=== PATIENT | male | born 1955 | race Caucasian/White ===

== ENCOUNTER 2019-03-16 12:14 | Inpatient (IN) | payer SELFPAY ==
[2019-03-16 13:12] LABS: ADD MAN DIFF? NO
[2019-03-16] MEDS: PANTOPRAZOLE 40 MG INJ IV ×2 (13:13→19:18)
[2019-03-16] MEDS: SOD CHLORIDE 0.9% 1,000 ML IV ×2 (13:13→17:23)
[2019-03-16 13:20] LABS: WHITE BLOOD COUNT 12.2 10^3/ul (4.8-10.8)
[2019-03-16 13:20] LABS: BASOPHIL # 0.1 10^3/ul (0.0-0.1); BASOPHILS % 0.5 % (0.0-2.0); EOSINOPHILS % 0.2 % (0.0-7.0); HEMATOCRIT 24.3 % (42.0-52.0); HEMOGLOBIN 7.9 g/dl (14.0-18.0); LYMPHOCYTES # 2.3 10^3/ul (0.8-2.9); MEAN CORPUSCULAR HEMOGLOBIN 32.8 pg (29.0-33.0); MEAN CORPUSCULAR HGB CONC 32.5 g/dl (32.0-37.0); MEAN CORPUSCULAR VOLUME 100.8 fl (82.0-101.0); MEAN PLATELET VOLUME 10.7 fl (7.4-10.4); MONOCYTE # 0.7 10^3/ul (0.3-0.9); MONOCYTES % 5.8 % (0.0-11.0); NEUTROPHILS % 73.8 % (39.0-77.0); PLATELET COUNT 207 10^3/UL (140-415); RED BLOOD COUNT 2.41 10^6/ul (4.70-6.10); RED CELL DISTRIBUTION WIDTH 16.8 % (11.5-14.5)
[2019-03-16 13:38] LABS: ALANINE AMINOTRANSFERASE 43 IU/L (13-69); ALBUMIN 2.6 g/dl (3.3-4.9); ALBUMIN/GLOBULIN RATIO 0.65; ALKALINE PHOSPHATASE 126 IU/L (42-121); ANION GAP 8 (5-13); ASPARTATE AMINO TRANSFERASE 76 IU/L (15-46); BLOOD UREA NITROGEN 64 mg/dl (7-20); CALCIUM 8.7 mg/dl (8.4-10.2); CARBON DIOXIDE 24 mmol/L (21-31); CHLORIDE 115 mmol/L (97-110); CREATININE 1.54 mg/dl (0.61-1.24); Estimated GFR 46 mL/min (>60); GLUCOSE 133 mg/dl (70-220); POTASSIUM 4.3 mmol/L (3.5-5.1); SODIUM 147 mmol/L (135-144); TOTAL PROTEIN 6.6 g/dl (6.1-8.1)
[2019-03-16 13:40] LABS: INR 1.33; PROTIME 16.6 Sec (11.9-14.9); PT RATIO 1.3
[2019-03-16 13:41] LABS: PARTIAL THROMBOPLASTIN TIME 36.9 Sec (23.0-35.0)
[2019-03-16] MEDS: PANTOPRAZOLE IV 80 MG in SOD CHLORIDE 0.9% 100 ML IVPB (13:45)
[2019-03-16 13:49] LABS: TROPONIN-I < 0.012 ng/ml (0.000-0.120)
[2019-03-16] MEDS: LORAZEPAM 2 MG INJ IV (17:23)
[2019-03-16] MEDS ORDERED: ACETAMINOPHEN 325 MG TAB PO (17:30)
[2019-03-16] MEDS ORDERED: NACL 0.9% 3 ML SYG IV (18:00)
[2019-03-16 19:46] LABS: ANION GAP 9 (5-13); BLOOD UREA NITROGEN 66 mg/dl (7-20); CALCIUM 8.6 mg/dl (8.4-10.2); CARBON DIOXIDE 21 mmol/L (21-31); CHLORIDE 118 mmol/L (97-110); CREATININE 1.35 mg/dl (0.61-1.24); Estimated GFR 54 mL/min (>60); GLUCOSE 123 mg/dl (70-220); POTASSIUM 4.3 mmol/L (3.5-5.1); SODIUM 148 mmol/L (135-144)
[2019-03-16 20:31] LABS: ABNORMAL IP MESSAGE 1; HEMATOCRIT 21.4 % (42.0-52.0); MEAN CORPUSCULAR HEMOGLOBIN 32.7 pg (29.0-33.0); MEAN CORPUSCULAR HGB CONC 31.8 g/dl (32.0-37.0); MEAN CORPUSCULAR VOLUME 102.9 fl (82.0-101.0); PLATELET COUNT 173 10^3/UL (140-415); POSITIVE DIFF @See below; RED BLOOD COUNT 2.08 10^6/ul (4.70-6.10); RED CELL DISTRIBUTION WIDTH 17.1 % (11.5-14.5)
[2019-03-16 20:31] LABS: WHITE BLOOD COUNT 11.5 10^3/ul (4.8-10.8)
[2019-03-16 20:40] LABS: HEMOGLOBIN 6.8 g/dl (14.0-18.0)
[2019-03-16 20:41] LABS: ADD MAN DIFF? YES
[2019-03-16 20:49] LABS: ANION GAP 5 (5-13); BLOOD UREA NITROGEN 63 mg/dl (7-20); CALCIUM 8.8 mg/dl (8.4-10.2); CARBON DIOXIDE 22 mmol/L (21-31); CHLORIDE 120 mmol/L (97-110); CREATININE 1.43 mg/dl (0.61-1.24); Estimated GFR 50 mL/min (>60); GLUCOSE 127 mg/dl (70-220); SODIUM 147 mmol/L (135-144)
[2019-03-16] MEDS ORDERED: ACETAMINOPHEN 1000MG/100ML IV 100 ML IVPB (22:00)
[2019-03-16] MEDS: ONDANSETRON 4 MG INJ IV (22:04)
[2019-03-16] MEDS: morphine 2 MG INJ IV (22:07)
[2019-03-16 23:16] LABS: ANISOCYTOSIS 1+ (0-0); BAND NEUTROPHILS #M 0.2 10^3/ul (0.0-0.6); BAND NEUTROPHILS % (M) 2 % (0-4); BASOPHIL #M 0.4 10^3/ul (0.0-0.0); BASOPHILS % (M) 4 % (0-2); EOSINOPHILS % (M) 3 % (0-7); HYPOCHROMASIA 1+ (0-0); LYMPHOCYTES #M 0.5 10^3/ul (0.8-2.9); LYMPHOCYTES % (M) 5 % (15-51); MONOCYTE #M 0.6 10^3/ul (0.3-0.9); MONOCYTES % (M) 6 % (0-11); OVALOCYTES 1+ (0-0); PLATELET ESTIMATE NORMAL; POIKILOCYTOSIS 1+ (0-0); REACTIVE LYMPHOCYTES #M 0.1 10^3/ul (0.0-0.0); REACTIVE LYMPHOCYTES% (M) 1 % (0-0); SEG NEUT #M 9.1 10^3/ul (1.6-7.5); SEGMENTED NEUTROPHILS (M) % 79 % (39-77); SMUDGE%M 44 % (0-0)
[2019-03-17] MEDS: OCTREOTIDE 50 MCG in SOD CHLORIDE 0.9% 50 ML IVPB (00:13)
[2019-03-17] MEDS: OCTREOTIDE 1 MG in DEXTROSE 5% 95 ML IV ×2 (00:14→18:30)
[2019-03-17] MEDS: PANTOPRAZOLE IV 80 MG in SOD CHLORIDE 0.9% 100 ML IV ×2 (00:14→10:04)
[2019-03-17 06:32] LABS: IMMEDIATE SPIN CROSSMATCH 1 5
[2019-03-17 12:09] LABS: ADD MAN DIFF? NO
[2019-03-17 12:12] LABS: WHITE BLOOD COUNT 9.6 10^3/ul (4.8-10.8)
[2019-03-17 12:12] LABS: BASOPHIL # 0.1 10^3/ul (0.0-0.1); BASOPHILS % 0.5 % (0.0-2.0); EOSINOPHILS % 0.3 % (0.0-7.0); HEMOGLOBIN 7.8 g/dl (14.0-18.0); LYMPHOCYTES # 1.7 10^3/ul (0.8-2.9); MEAN CORPUSCULAR HEMOGLOBIN 31.5 pg (29.0-33.0); MEAN CORPUSCULAR HGB CONC 32.5 g/dl (32.0-37.0); MEAN CORPUSCULAR VOLUME 96.8 fl (82.0-101.0); MEAN PLATELET VOLUME 10.2 fl (7.4-10.4); MONOCYTE # 0.7 10^3/ul (0.3-0.9); MONOCYTES % 7.7 % (0.0-11.0); NEUTROPHILS % 73.1 % (39.0-77.0); PLATELET COUNT 150 10^3/UL (140-415); RED BLOOD COUNT 2.48 10^6/ul (4.70-6.10); RED CELL DISTRIBUTION WIDTH 19.9 % (11.5-14.5)
[2019-03-17 12:32] LABS: INR 1.32; PROTIME 16.5 Sec (11.9-14.9); PT RATIO 1.3
[2019-03-17 12:33] LABS: ALANINE AMINOTRANSFERASE 45 IU/L (13-69); ALBUMIN 2.3 g/dl (3.3-4.9); ALBUMIN/GLOBULIN RATIO 0.65; ALKALINE PHOSPHATASE 95 IU/L (42-121); ANION GAP 5 (5-13); ASPARTATE AMINO TRANSFERASE 69 IU/L (15-46); BILIRUBIN,INDIRECT 0.8 mg/dl (0-1.1); BILIRUBIN,TOTAL 0.8 mg/dl (0.2-1.3); BLOOD UREA NITROGEN 58 mg/dl (7-20); CALCIUM 8.4 mg/dl (8.4-10.2); CARBON DIOXIDE 23 mmol/L (21-31); CHLORIDE 123 mmol/L (97-110); CREATININE 1.38 mg/dl (0.61-1.24); Estimated GFR 52 mL/min (>60); GLUCOSE 137 mg/dl (70-220); PARTIAL THROMBOPLASTIN TIME 37.7 Sec (23.0-35.0); POTASSIUM 4.3 mmol/L (3.5-5.1); SODIUM 151 mmol/L (135-144); TOTAL PROTEIN 5.8 g/dl (6.1-8.1)
[2019-03-17 12:38] LABS: ETHANOL < 10.0 mg/dl (0-0)
[2019-03-17 14:21] LABS: AADO2 Arterial 13.5 mmHg (7.0-24.0); Allen Test ACCEPTAB; Arterial Base Excess -1.6 mmol/L (-3.0-3); Arterial Blood Gas Oxygen Sat 97.3 mmHG (95.0-98.0); Arterial COHb 0.3 % (0.0-3.0); Arterial Fraction of Oxyhgb 96.4 % (93.0-99.0); Arterial HCO3 20.7 mmol/L (22.0-26.0); Arterial MetHb 0.6 % (0.0-1.5); Arterial pCO2 26.4 mmhg (35-45); MODE ROOM AIR; Site Left Radial
[2019-03-17 15:16] LABS: LIPASE 276 U/L (23-300)
[2019-03-17 15:17] LABS: AMMONIA 206 umol/l (9-30)
[2019-03-17 15:41] LABS: AMPHETAMINE/METHAMPHETAMINE Negative (NEGATIVE); BARBITURATES Negative (NEGATIVE); BENZODIAZEPINES Negative (NEGATIVE); CANNABINOIDS Negative (NEGATIVE); COCAINE Negative (NEGATIVE); OPIATES Positive (NEGATIVE)
[2019-03-17 16:16] LABS: THYROID STIMULATING HORMONE 0.189 MIU/L (0.465-4.680)
[2019-03-17] MEDS ORDERED: ONDANSETRON 4 MG INJ IV (17:30)
[2019-03-17 17:32] LABS: ADD UMIC YES; UR ASCORBIC ACID NEGATIVE (NEGATIVE); UR BILIRUBIN (Dip) NEGATIVE (NEGATIVE); UR BLOOD (Dip) 1+ mg/dL (NEGATIVE); UR CLARITY CLEAR (CLEAR); UR COLOR YELLOW (YELLOW); UR GLUCOSE (Dip) NEGATIVE (NEGATIVE); UR KETONES (Dip) NEGATIVE (NEGATIVE); UR LEUKOCYTE ESTERASE (Dip) NEGATIVE Leu/ul (NEGATIVE); UR NITRITE (Dip) NEGATIVE (NEGATIVE); UR RBC 23 /HPF (0-5); UR SPECIFIC GRAVITY (Dip) 1.019 (1.003-1.030); UR TOTAL PROTEIN (Dip) NEGATIVE (NEGATIVE); UR UROBILINOGEN (Dip) 2+ mg/dL (NEGATIVE); UR WBC 3 /HPF (0-5)
[2019-03-17 17:35] LABS: CREATININE,URINE RANDOM 89.44 mg/dl (20-370)
[2019-03-17 17:44] LABS: PROTEIN URINE < 5.0 mg/dl (0.0-11.9)
[2019-03-17 18:02] LABS: SODIUM,URINE RANDOM 15 mmol/L (30-90)
[2019-03-17] MEDS: DEXTROSE 5% 1,000 ML IV (18:30)
[2019-03-17] MEDS: LACTULOSE ENEMA 1,000 ML BTL PR (18:31)
[2019-03-17 18:51] LABS: HEPATITIS B SURFACE ANTIGEN NEGATIVE (NEGATIVE)
[2019-03-17 19:08] LABS: HEPATITIS B SURFACE ANTIBODY NEGATIVE (NEGATIVE)
[2019-03-17 19:09] LABS: HEPATITIS B CORE ANTIBODY NEGATIVE (NEGATIVE); HEPATITIS C VIRAL ANTIBODY NEGATIVE (NEGATIVE)
[2019-03-17 19:36] LABS: ANION GAP 4 (5-13); BLOOD UREA NITROGEN 56 mg/dl (7-20); CALCIUM 8.5 mg/dl (8.4-10.2); CARBON DIOXIDE 22 mmol/L (21-31); CHLORIDE 125 mmol/L (97-110); CREATININE 1.34 mg/dl (0.61-1.24); Estimated GFR 54 mL/min (>60); GLUCOSE 136 mg/dl (70-220); POTASSIUM 4.5 mmol/L (3.5-5.1); SODIUM 151 mmol/L (135-144)
[2019-03-17] MEDS: PANTOPRAZOLE IV 80 MG in DEXTROSE 5% 100 ML IV (20:28)
[2019-03-17] MEDS: LACTULOSE 30ML CUP PO (20:29)
[2019-03-17] MEDS: RIFAXIMIN 550 MG TAB PO (20:29)
[2019-03-18] MEDS: LACTULOSE ENEMA 1,000 ML BTL PR ×2 (00:22→06:46)
[2019-03-18 00:32] LABS: AADO2 Arterial 63.2 mmHg (7.0-24.0); Allen Test ACCEPTAB; Arterial Blood Gas Oxygen Sat 96.9 mmHG (95.0-98.0); Arterial COHb 0.3 % (0.0-3.0); Arterial MetHb 0.6 % (0.0-1.5); Arterial pCO2 30.3 mmhg (35-45); MODE NASAL CANNULA; Site Right Radial
[2019-03-18] MEDS: LACTULOSE 30ML CUP PO ×6 (01:00→21:50)
[2019-03-18] MEDS: PANTOPRAZOLE IV 80 MG in DEXTROSE 5% 100 ML IV ×2 (01:00→06:57)
[2019-03-18] MEDS: DEXTROSE 5% 1,000 ML IV ×2 (04:00→13:38)
[2019-03-18 05:35] LABS: ADD MAN DIFF? NO
[2019-03-18 05:37] LABS: WHITE BLOOD COUNT 10.7 10^3/ul (4.8-10.8)
[2019-03-18 05:37] LABS: BASOPHIL # 0.1 10^3/ul (0.0-0.1); BASOPHILS % 0.7 % (0.0-2.0); EOSINOPHILS % 0.2 % (0.0-7.0); HEMATOCRIT 26.1 % (42.0-52.0); HEMOGLOBIN 8.6 g/dl (14.0-18.0); LYMPHOCYTES # 1.9 10^3/ul (0.8-2.9); LYMPHOCYTES % 17.6 % (15.0-51.0); MEAN CORPUSCULAR HEMOGLOBIN 31.6 pg (29.0-33.0); MEAN PLATELET VOLUME 10.3 fl (7.4-10.4); MONOCYTE # 0.8 10^3/ul (0.3-0.9); MONOCYTES % 7.6 % (0.0-11.0); NEUTROPHIL # 7.8 10^3/ul (1.6-7.5); NEUTROPHILS % 73.1 % (39.0-77.0); PLATELET COUNT 186 10^3/UL (140-415); RED BLOOD COUNT 2.72 10^6/ul (4.70-6.10); RED CELL DISTRIBUTION WIDTH 20.1 % (11.5-14.5)
[2019-03-18 06:08] LABS: AMMONIA 143 umol/l (9-30)
[2019-03-18 06:12] LABS: ALANINE AMINOTRANSFERASE 38 IU/L (13-69); ALBUMIN 2.4 g/dl (3.3-4.9); ALBUMIN/GLOBULIN RATIO 0.63; ALKALINE PHOSPHATASE 98 IU/L (42-121); ANION GAP 8 (5-13); ASPARTATE AMINO TRANSFERASE 67 IU/L (15-46); BILIRUBIN,INDIRECT 1.3 mg/dl (0-1.1); BILIRUBIN,TOTAL 1.3 mg/dl (0.2-1.3); BLOOD UREA NITROGEN 47 mg/dl (7-20); CALCIUM 8.7 mg/dl (8.4-10.2); CARBON DIOXIDE 21 mmol/L (21-31); CHLORIDE 127 mmol/L (97-110); CREATININE 1.28 mg/dl (0.61-1.24); Estimated GFR 57 mL/min (>60); GLUCOSE 144 mg/dl (70-220); MAGNESIUM 2.5 mg/dl (1.7-2.5); POTASSIUM 3.7 mmol/L (3.5-5.1); SODIUM 156 mmol/L (135-144); TOTAL PROTEIN 6.2 g/dl (6.1-8.1)
[2019-03-18] MEDS: RIFAXIMIN 550 MG TAB PO ×2 (08:09→21:50)
[2019-03-18 08:30] LABS: SODIUM 153 mmol/L (135-144)
[2019-03-18 11:41] LABS: C-REACTIVE PROTEIN 0.9 mg/dl (0.0-0.9)
[2019-03-18] MEDS ORDERED: VANCOMYCIN IV PER PHARMACY XX (12:00)
[2019-03-18 13:36] LABS: OSMOLALITY,URINE 680 mOsm/kg (250-1200)
[2019-03-18] MEDS: PIPER-TAZO 3.375 GM IV (PMX) 100 ML IVPB ×2 (13:38→21:57)
[2019-03-18 13:42] LABS: CREATININE, RANDOM URINE 82 mg/dL (20-320); MICROALBUMIN 0.7 mg/dL; MICROALBUMIN/CREATININE RATIO 9 (<30)
[2019-03-18 14:36] LABS: AADO2 Arterial 64.9 mmHg (7.0-24.0); Allen Test ACCEPTAB; Arterial Base Excess -0.2 mmol/L (-3.0-3); Arterial Blood Gas Oxygen Sat 96.4 mmHG (95.0-98.0); Arterial COHb 0.3 % (0.0-3.0); Arterial Fraction of Oxyhgb 95.6 % (93.0-99.0); Arterial HCO3 22.7 mmol/L (22.0-26.0); Arterial MetHb 0.5 % (0.0-1.5); Arterial pCO2 30.3 mmhg (35-45); MODE NASAL CANNULA; Site Left Radial
[2019-03-18 14:40] LABS: CREATINE KINASE 114 IU/L (23-200)
[2019-03-18 14:50] LABS: CK INDEX 0.9; CK-MB 1.01 ng/ml (0.0-2.4); TROPONIN-I < 0.012 ng/ml (0.000-0.120)
[2019-03-18 15:14] LABS: ANION GAP 6 (5-13); BLOOD UREA NITROGEN 41 mg/dl (7-20); CALCIUM 8.7 mg/dl (8.4-10.2); CARBON DIOXIDE 22 mmol/L (21-31); CHLORIDE 129 mmol/L (97-110); CREATININE 1.28 mg/dl (0.61-1.24); Estimated GFR 57 mL/min (>60); GLUCOSE 135 mg/dl (70-220); POTASSIUM 3.6 mmol/L (3.5-5.1); SODIUM 157 mmol/L (135-144)
[2019-03-18 15:15] LABS: PHOSPHORUS 3.4 mg/dl (2.5-4.9)
[2019-03-18] MEDS: LORAZEPAM 2 MG INJ IV (17:08)
[2019-03-18] MEDS: VANCOMYCIN HCL 1.5 GM in SOD CHLORIDE 0.9% 250 ML IVPB (18:30)
[2019-03-18] MEDS: PANTOPRAZOLE 40 MG INJ IV (18:51)
[2019-03-18 20:14] LABS: CREATINE KINASE 124 IU/L (23-200)
[2019-03-18 20:28] LABS: CK INDEX 1.1; CK-MB 1.41 ng/ml (0.0-2.4); TROPONIN-I < 0.012 ng/ml (0.000-0.120)
[2019-03-18] MEDS: PROPRANOLOL 10 MG TAB PO (21:56)
[2019-03-19] MEDS: LACTULOSE 30ML CUP PO ×6 (01:19→20:33)
[2019-03-19] MEDS: DEXTROSE 5% 1,000 ML IV ×2 (01:26→16:19)
[2019-03-19] MEDS: VANCOMYCIN 750 MG (PMX) 250 ML IVPB ×2 (01:28→16:51)
[2019-03-19 05:55] LABS: ADD MAN DIFF? NO
[2019-03-19 06:03] LABS: BASOPHIL # 0.1 10^3/ul (0.0-0.1); BASOPHILS % 0.7 % (0.0-2.0); EOSINOPHILS # 0.3 10^3/ul (0.0-0.5); EOSINOPHILS % 2.5 % (0.0-7.0); HEMATOCRIT 25.2 % (42.0-52.0); LYMPHOCYTES % 18.4 % (15.0-51.0); MEAN CORPUSCULAR HEMOGLOBIN 30.9 pg (29.0-33.0); MEAN CORPUSCULAR HGB CONC 31.7 g/dl (32.0-37.0); MEAN CORPUSCULAR VOLUME 97.3 fl (82.0-101.0); MEAN PLATELET VOLUME 10.7 fl (7.4-10.4); MONOCYTE # 0.9 10^3/ul (0.3-0.9); MONOCYTES % 8.5 % (0.0-11.0); NEUTROPHIL # 7.7 10^3/ul (1.6-7.5); NEUTROPHILS % 69.4 % (39.0-77.0); PLATELET COUNT 170 10^3/UL (140-415); RED BLOOD COUNT 2.59 10^6/ul (4.70-6.10); RED CELL DISTRIBUTION WIDTH 19.9 % (11.5-14.5)
[2019-03-19 06:03] LABS: WHITE BLOOD COUNT 11.1 10^3/ul (4.8-10.8)
[2019-03-19 06:20] LABS: ALANINE AMINOTRANSFERASE 35 IU/L (13-69); ALBUMIN 2.3 g/dl (3.3-4.9); ALBUMIN/GLOBULIN RATIO 0.63; ALKALINE PHOSPHATASE 91 IU/L (42-121); ANION GAP 5 (5-13); ASPARTATE AMINO TRANSFERASE 65 IU/L (15-46); BILIRUBIN,INDIRECT 1.4 mg/dl (0-1.1); BILIRUBIN,TOTAL 1.4 mg/dl (0.2-1.3); BLOOD UREA NITROGEN 28 mg/dl (7-20); CALCIUM 8.2 mg/dl (8.4-10.2); CARBON DIOXIDE 23 mmol/L (21-31); CHLORIDE 125 mmol/L (97-110); Estimated GFR > 60 mL/min (>60); GLUCOSE 119 mg/dl (70-220); POTASSIUM 3.4 mmol/L (3.5-5.1); SODIUM 153 mmol/L (135-144); TOTAL PROTEIN 5.9 g/dl (6.1-8.1)
[2019-03-19] MEDS: PIPER-TAZO 3.375 GM IV (PMX) 100 ML IVPB ×3 (06:49→21:23)
[2019-03-19] MEDS: PANTOPRAZOLE 40 MG INJ IV ×2 (06:49→17:51)
[2019-03-19] MEDS ORDERED: VECURONIUM 10 MG VIAL (07:00)
[2019-03-19] MEDS ORDERED: ETOMIDATE 20 MG INJ (07:00)
[2019-03-19] MEDS: RIFAXIMIN 550 MG TAB PO ×2 (09:14→20:33)
[2019-03-19] MEDS: PROPRANOLOL 10 MG TAB PO ×2 (09:15→20:10)
[2019-03-19] MEDS: POTASSIUM CHLORIDE 20 MEQ POWDER FOR ORAL SOLN NGT (09:15)
[2019-03-19 11:03] LABS: AADO2 Arterial 73.5 mmHg (7.0-24.0); Allen Test ACCEPTAB; Arterial Base Excess -1.8 mmol/L (-3.0-3); Arterial Blood Gas Oxygen Sat 94.7 mmHG (95.0-98.0); Arterial COHb 0.3 % (0.0-3.0); Arterial MetHb 0.4 % (0.0-1.5); Arterial pCO2 33.8 mmhg (35-45); MODE NASAL CANNULA; Site Right Radial
[2019-03-19 11:33] LABS: AMMONIA 178 umol/l (9-30)
[2019-03-19 12:05] LABS: THYROID STIMULATING HORMONE 0.091 MIU/L (0.465-4.680)
[2019-03-19 13:07] LABS: Arterial Base Excess -2.2 mmol/L (-3.0-3); Arterial Blood Gas Oxygen Sat 90.9 mmHG (95.0-98.0); Arterial COHb 0.3 % (0.0-3.0); Arterial Fraction of Oxyhgb 90.3 % (93.0-99.0); Arterial HCO3 21.9 mmol/L (22.0-26.0); Arterial MetHb 0.4 % (0.0-1.5); Arterial pCO2 34.7 mmhg (35-45); MODE VENT - AC; Site Right Brachial
[2019-03-19] MEDS: FUROSEMIDE 40 MG INJ IV (15:50)
[2019-03-19] MEDS: PROPOFOL 100 ML IV ×2 (17:52→23:15)
[2019-03-19 19:22] LABS: ANA SCREEN POSITIVE (NEGATIVE)
[2019-03-19] MEDS: PROPOFOL 20 ML (20:11)
[2019-03-19 20:52] LABS: ANA PATTERN NUCLEAR ENVELOPE
[2019-03-20] MEDS: LACTULOSE 30ML CUP PO ×6 (01:03→20:38)
[2019-03-20] MEDS: DEXTROSE 5% 1,000 ML IV ×3 (01:43→16:32)
[2019-03-20] MEDS: VANCOMYCIN 750 MG (PMX) 250 ML IVPB ×2 (02:32→14:54)
[2019-03-20] MEDS: PANTOPRAZOLE 40 MG INJ IV ×2 (05:00→18:16)
[2019-03-20] MEDS: PIPER-TAZO 3.375 GM IV (PMX) 100 ML IVPB ×3 (05:00→21:31)
[2019-03-20 05:25] LABS: ADD MAN DIFF? NO
[2019-03-20 05:29] LABS: BASOPHIL # 0.1 10^3/ul (0.0-0.1); EOSINOPHILS # 0.6 10^3/ul (0.0-0.5); EOSINOPHILS % 4.9 % (0.0-7.0); HEMATOCRIT 26.8 % (42.0-52.0); HEMOGLOBIN 8.6 g/dl (14.0-18.0); LYMPHOCYTES # 2.1 10^3/ul (0.8-2.9); LYMPHOCYTES % 18.5 % (15.0-51.0); MEAN CORPUSCULAR HEMOGLOBIN 31.9 pg (29.0-33.0); MEAN CORPUSCULAR HGB CONC 32.1 g/dl (32.0-37.0); MEAN CORPUSCULAR VOLUME 99.3 fl (82.0-101.0); MEAN PLATELET VOLUME 11.1 fl (7.4-10.4); MONOCYTE # 0.9 10^3/ul (0.3-0.9); MONOCYTES % 8.2 % (0.0-11.0); NEUTROPHIL # 7.5 10^3/ul (1.6-7.5); PLATELET COUNT 161 10^3/UL (140-415); RED CELL DISTRIBUTION WIDTH 19.4 % (11.5-14.5)
[2019-03-20 05:29] LABS: WHITE BLOOD COUNT 11.2 10^3/ul (4.8-10.8)
[2019-03-20 06:08] LABS: FREE THYROXINE INDEX (Calc) 2.46 ug/ml (0.65-3.89); T3 UPTAKE 39.7 % (23.5-40.5); T4 (THYROXINE) 6.2 ug/dl (5.5-11.0)
[2019-03-20 06:09] LABS: ANION GAP 6 (5-13); BLOOD UREA NITROGEN 31 mg/dl (7-20); CALCIUM 8.1 mg/dl (8.4-10.2); CARBON DIOXIDE 22 mmol/L (21-31); CHLORIDE 123 mmol/L (97-110); CREATININE 1.43 mg/dl (0.61-1.24); Estimated GFR 50 mL/min (>60); GLUCOSE 113 mg/dl (70-220); MAGNESIUM 2.3 mg/dl (1.7-2.5); PHOSPHORUS 3.4 mg/dl (2.5-4.9); SODIUM 151 mmol/L (135-144)
[2019-03-20 08:11] LABS: AMMONIA 48 umol/l (9-30)
[2019-03-20 09:01] LABS: IRON 26 ug/dl (35-150)
[2019-03-20] MEDS: POTASSIUM CHLORIDE 20 MEQ POWDER FOR ORAL SOLN NGT (09:05)
[2019-03-20] MEDS: FOLIC ACID 1 MG TAB NGT (09:06)
[2019-03-20] MEDS: RIFAXIMIN 550 MG TAB PO ×2 (09:07→20:38)
[2019-03-20] MEDS: PHYTONADIONE 10 MG/ML INJ IM (09:07)
[2019-03-20 09:10] LABS: % IRON SATURATION 10 % SAT (22-52); TOTAL IRON BINDING CAPACITY 260 ug/dl (241-421)
[2019-03-20] MEDS: PROPRANOLOL 10 MG TAB PO ×2 (09:10→20:38)
[2019-03-20] MEDS: THIAMINE 100 MG TAB NGT (09:14)
[2019-03-20] MEDS: THIAMINE 200 MG INJ IM (09:14)
[2019-03-20] MEDS: POTASSIUM CHLORIDE 100 ML IVPB ×3 (09:27→12:46)
[2019-03-20] MEDS: PROPOFOL 100 ML IV ×2 (11:46→16:31)
[2019-03-20 13:02] LABS: MITOCHONDRIAL TB NEGATIVE (NEGATIVE); SMOOTH MUSCLE AB SCREEN POSITIVE (NEGATIVE)
[2019-03-20 14:29] LABS: VANCOMYCIN,TROUGH 14.6 ug/ml (10.0-20.0)
[2019-03-20 20:42] LABS: RAPID PLASMA REAGIN NONREACTIVE (NR)
[2019-03-21] MEDS: LACTULOSE 30ML CUP PO ×5 (00:23→17:04)
[2019-03-21] MEDS: VANCOMYCIN 750 MG (PMX) 250 ML IVPB ×2 (01:23→14:21)
[2019-03-21] MEDS: DEXTROSE 5% 1,000 ML IV ×2 (03:41→13:22)
[2019-03-21] MEDS: PROPOFOL 100 ML IV ×3 (03:57→21:44)
[2019-03-21 05:23] LABS: AADO2 Arterial 51.4 mmHg (7.0-24.0); Allen Test ACCEPTAB; Arterial Base Excess -4.3 mmol/L (-3.0-3); Arterial Blood Gas Oxygen Sat 98.4 mmHG (95.0-98.0); Arterial COHb 0.2 % (0.0-3.0); Arterial Fraction of Oxyhgb 97.6 % (93.0-99.0); Arterial MetHb 0.6 % (0.0-1.5); Arterial pCO2 28.3 mmhg (35-45); MODE VENT - AC; Site Right Radial
[2019-03-21 05:27] LABS: ADD MAN DIFF? NO
[2019-03-21 05:33] LABS: BASOPHIL # 0.1 10^3/ul (0.0-0.1); BASOPHILS % 0.9 % (0.0-2.0); EOSINOPHILS # 0.7 10^3/ul (0.0-0.5); EOSINOPHILS % 7.4 % (0.0-7.0); HEMATOCRIT 26.4 % (42.0-52.0); MEAN CORPUSCULAR HEMOGLOBIN 30.9 pg (29.0-33.0); MEAN CORPUSCULAR HGB CONC 30.3 g/dl (32.0-37.0); MEAN CORPUSCULAR VOLUME 101.9 fl (82.0-101.0); MEAN PLATELET VOLUME 11.7 fl (7.4-10.4); MONOCYTE # 0.7 10^3/ul (0.3-0.9); MONOCYTES % 7.6 % (0.0-11.0); NEUTROPHIL # 5.6 10^3/ul (1.6-7.5); NEUTROPHILS % 61.8 % (39.0-77.0); NUCLEATED RED BLOOD CELLS% 0.2 /100WBC (0.0-0.0); PLATELET COUNT 138 10^3/UL (140-415); RED BLOOD COUNT 2.59 10^6/ul (4.70-6.10); RED CELL DISTRIBUTION WIDTH 18.8 % (11.5-14.5)
[2019-03-21] MEDS: PIPER-TAZO 3.375 GM IV (PMX) 100 ML IVPB ×3 (05:41→21:44)
[2019-03-21] MEDS: PANTOPRAZOLE 40 MG INJ IV ×2 (05:41→17:05)
[2019-03-21 05:51] LABS: INR 1.36; PROTIME 16.9 Sec (11.9-14.9); PT RATIO 1.3
[2019-03-21 05:52] LABS: AMMONIA 30 umol/l (9-30); LACTIC ACID 1.4 mmol/L (0.5-2.0)
[2019-03-21 05:52] LABS: PARTIAL THROMBOPLASTIN TIME 39.1 Sec (23.0-35.0)
[2019-03-21 05:59] LABS: ALANINE AMINOTRANSFERASE 33 IU/L (13-69); ALBUMIN 2.3 g/dl (3.3-4.9); ALBUMIN/GLOBULIN RATIO 0.62; ALKALINE PHOSPHATASE 100 IU/L (42-121); ANION GAP 5 (5-13); ASPARTATE AMINO TRANSFERASE 57 IU/L (15-46); BILIRUBIN,INDIRECT 0.8 mg/dl (0-1.1); BILIRUBIN,TOTAL 0.8 mg/dl (0.2-1.3); BLOOD UREA NITROGEN 34 mg/dl (7-20); CALCIUM 8.4 mg/dl (8.4-10.2); CARBON DIOXIDE 21 mmol/L (21-31); CHLORIDE 124 mmol/L (97-110); CREATININE 1.48 mg/dl (0.61-1.24); Estimated GFR 48 mL/min (>60); GLUCOSE 121 mg/dl (70-220); POTASSIUM 3.6 mmol/L (3.5-5.1); SODIUM 150 mmol/L (135-144)
[2019-03-21 06:10] LABS: FREE T4 (FREE THYROXINE) 1.25 ng/dl (0.78-2.44)
[2019-03-21 06:10] LABS: FREE THYROXINE INDEX (Calc) 3.02 ug/ml (0.65-3.89); T3 UPTAKE 40.2 % (23.5-40.5); T4 (THYROXINE) 7.5 ug/dl (5.5-11.0)
[2019-03-21 06:35] LABS: PHOSPHORUS 3.8 mg/dl (2.5-4.9)
[2019-03-21 06:35] LABS: MAGNESIUM 2.4 mg/dl (1.7-2.5)
[2019-03-21 06:52] LABS: FREE T3 2.83 pg/ml (2.77-5.27)
[2019-03-21] MEDS: FOLIC ACID 1 MG TAB NGT (08:10)
[2019-03-21] MEDS: RIFAXIMIN 550 MG TAB PO (08:10)
[2019-03-21] MEDS: THIAMINE 100 MG TAB NGT (08:10)
[2019-03-21] MEDS: THIAMINE 200 MG INJ IM (08:11)
[2019-03-21] MEDS: PROPRANOLOL 10 MG TAB PO (08:11)
[2019-03-21] MEDS ORDERED: DEXMEDETOMIDINE HCL 200 MCG in SOD CHLORIDE 0.9% 48 ML IV (13:00)
[2019-03-21] MEDS: DEXTROSE 5% WATER 500 ML BAG IV (15:00)
[2019-03-21] MEDS: LACTATED RINGER'S 500 ML IV (16:17)
[2019-03-21] MEDS: QUETIAPINE 25 MG TAB NGT (20:54)
[2019-03-21] MEDS: LACTULOSE 30ML CUP NGT (20:54)
[2019-03-21] MEDS: RIFAXIMIN 550 MG TAB NGT (20:55)
[2019-03-21] MEDS: PROPRANOLOL 10 MG TAB NGT (20:55)
[2019-03-22] MEDS: LACTULOSE 30ML CUP NGT ×7 (04:01→20:53)
[2019-03-22] MEDS: VANCOMYCIN 750 MG (PMX) 250 ML IVPB (04:01)
[2019-03-22] MEDS: DEXTROSE 5% 1,000 ML IV ×3 (04:04→19:04)
[2019-03-22 04:43] LABS: OCCULT BLOOD STOOL NEGATIVE (NEGATIVE)
[2019-03-22 05:17] LABS: ADD MAN DIFF? NO
[2019-03-22 05:20] LABS: AADO2 Arterial 54.1 mmHg (7.0-24.0); Allen Test ACCEPTAB; Arterial Blood Gas Oxygen Sat 98.2 mmHG (95.0-98.0); Arterial COHb 0 % (0.0-3.0); Arterial Fraction of Oxyhgb 97.7 % (93.0-99.0); Arterial HCO3 18.9 mmol/L (22.0-26.0); Arterial MetHb 0.5 % (0.0-1.5); Arterial pCO2 31.1 mmhg (35-45); MODE VENT - AC; Site Left Radial
[2019-03-22] MEDS: PANTOPRAZOLE 40 MG INJ IV ×2 (05:24→17:55)
[2019-03-22] MEDS: PIPER-TAZO 3.375 GM IV (PMX) 100 ML IVPB ×2 (05:25→13:07)
[2019-03-22 05:44] LABS: WHITE BLOOD COUNT 5.4 10^3/ul (4.8-10.8)
[2019-03-22 05:44] LABS: BASOPHILS % 0.7 % (0.0-2.0); EOSINOPHILS # 0.4 10^3/ul (0.0-0.5); EOSINOPHILS % 7.9 % (0.0-7.0); HEMATOCRIT 24.8 % (42.0-52.0); HEMOGLOBIN 7.8 g/dl (14.0-18.0); LYMPHOCYTES # 1.2 10^3/ul (0.8-2.9); LYMPHOCYTES % 22.8 % (15.0-51.0); MEAN CORPUSCULAR HEMOGLOBIN 31.8 pg (29.0-33.0); MEAN CORPUSCULAR HGB CONC 31.5 g/dl (32.0-37.0); MEAN CORPUSCULAR VOLUME 101.2 fl (82.0-101.0); MONOCYTE # 0.4 10^3/ul (0.3-0.9); MONOCYTES % 7.5 % (0.0-11.0); NEUTROPHIL # 3.3 10^3/ul (1.6-7.5); NEUTROPHILS % 60.7 % (39.0-77.0); PLATELET COUNT 108 10^3/UL (140-415); RED BLOOD COUNT 2.45 10^6/ul (4.70-6.10); RED CELL DISTRIBUTION WIDTH 17.8 % (11.5-14.5)
[2019-03-22] MEDS: PROPOFOL 100 ML IV (05:48)
[2019-03-22 06:04] LABS: AMMONIA 49 umol/l (9-30)
[2019-03-22 06:26] LABS: ANION GAP 5 (5-13); BLOOD UREA NITROGEN 24 mg/dl (7-20); CALCIUM 8.2 mg/dl (8.4-10.2); CARBON DIOXIDE 21 mmol/L (21-31); CHLORIDE 120 mmol/L (97-110); Estimated GFR > 60 mL/min (>60); GLUCOSE 114 mg/dl (70-220); POTASSIUM 3.4 mmol/L (3.5-5.1); SODIUM 146 mmol/L (135-144)
[2019-03-22] MEDS: THIAMINE 100 MG TAB NGT (08:10)
[2019-03-22] MEDS: POTASSIUM CHLORIDE 20 MEQ POWDER FOR ORAL SOLN PO (08:10)
[2019-03-22] MEDS: RIFAXIMIN 550 MG TAB NGT ×2 (08:11→20:53)
[2019-03-22] MEDS: PROPRANOLOL 10 MG TAB NGT ×2 (08:11→20:53)
[2019-03-22] MEDS: FOLIC ACID 1 MG TAB NGT (08:11)
[2019-03-22] MEDS: THIAMINE 200 MG INJ IM (08:11)
[2019-03-22] MEDS: FENTAnyl (DRIP) 1000 mcg/100mL 100 ML IV (10:22)
[2019-03-22] MEDS: LACTATED RINGER'S 500 ML IV (12:30)
[2019-03-22] MEDS: DEXTROSE 5% WATER 500 ML BAG IV (13:07)
[2019-03-22] MEDS: CEFTRIAXONE 1 GM/50 ML (PMX) 50 ML IVPB (14:49)
[2019-03-22 16:27] LABS: Allen Test ACCEPTAB
[2019-03-22 17:34] LABS: AADO2 Arterial 73.8 mmHg (7.0-24.0); Arterial Blood Gas Oxygen Sat 97.7 mmHG (95.0-98.0); Arterial COHb 0.3 % (0.0-3.0); Arterial Fraction of Oxyhgb 96.9 % (93.0-99.0); Arterial HCO3 19.3 mmol/L (22.0-26.0); Arterial MetHb 0.5 % (0.0-1.5); Arterial pCO2 28.6 mmhg (35-45); Blood Gas PS 10; MODE VENT - CPAP; Site Right Radial
[2019-03-22] MEDS: QUETIAPINE 25 MG TAB NGT (20:46)
[2019-03-23] MEDS: LACTULOSE 30ML CUP NGT ×5 (00:27→18:10)
[2019-03-23] MEDS: DEXTROSE 5% 1,000 ML IV ×2 (04:05→10:40)
[2019-03-23 05:26] LABS: ADD MAN DIFF? NO
[2019-03-23] MEDS: PANTOPRAZOLE 40 MG INJ IV ×2 (05:26→18:10)
[2019-03-23 05:33] LABS: ABNORMAL IP MESSAGE 1; BASOPHILS % 1.2 % (0.0-2.0); EOSINOPHILS # 0.2 10^3/ul (0.0-0.5); EOSINOPHILS % 6.5 % (0.0-7.0); HEMATOCRIT 23.6 % (42.0-52.0); HEMOGLOBIN 7.4 g/dl (14.0-18.0); LYMPHOCYTES % 29.9 % (15.0-51.0); MEAN CORPUSCULAR HEMOGLOBIN 31.8 pg (29.0-33.0); MEAN CORPUSCULAR HGB CONC 31.4 g/dl (32.0-37.0); MEAN CORPUSCULAR VOLUME 101.3 fl (82.0-101.0); MEAN PLATELET VOLUME 11.6 fl (7.4-10.4); MONOCYTE # 0.3 10^3/ul (0.3-0.9); MONOCYTES % 9.7 % (0.0-11.0); NEUTROPHIL # 1.7 10^3/ul (1.6-7.5); NEUTROPHILS % 52.7 % (39.0-77.0); POSITIVE DIFF @See below; RED BLOOD COUNT 2.33 10^6/ul (4.70-6.10); RED CELL DISTRIBUTION WIDTH 17.2 % (11.5-14.5)
[2019-03-23 05:33] LABS: WHITE BLOOD COUNT 3.2 10^3/ul (4.8-10.8)
[2019-03-23 06:17] LABS: ANION GAP 4 (5-13); BLOOD UREA NITROGEN 14 mg/dl (7-20); CALCIUM 7.9 mg/dl (8.4-10.2); CARBON DIOXIDE 22 mmol/L (21-31); CHLORIDE 117 mmol/L (97-110); CREATININE 0.92 mg/dl (0.61-1.24); Estimated GFR > 60 mL/min (>60); GLUCOSE 106 mg/dl (70-220); MAGNESIUM 1.9 mg/dl (1.7-2.5); PHOSPHORUS 3.4 mg/dl (2.5-4.9); POTASSIUM 3.7 mmol/L (3.5-5.1); SODIUM 143 mmol/L (135-144)
[2019-03-23 06:19] LABS: PLATELET COUNT 92 10^3/UL (140-415)
[2019-03-23] MEDS: PROPRANOLOL 10 MG TAB NGT ×2 (08:21→20:28)
[2019-03-23] MEDS: FOLIC ACID 1 MG TAB NGT (08:21)
[2019-03-23] MEDS: RIFAXIMIN 550 MG TAB NGT ×2 (08:21→20:27)
[2019-03-23] MEDS: THIAMINE 100 MG TAB NGT (08:21)
[2019-03-23] MEDS: THIAMINE 200 MG INJ IM (08:21)
[2019-03-23] MEDS: PROPOFOL 100 ML IV (11:30)
[2019-03-23 16:31] LABS: WEST NILE VIRUS ANTIBODY (IGG) <1.30 index; WEST NILE VIRUS ANTIBODY (IGM) <0.90 index
[2019-03-23 18:35] LABS: HEMATOCRIT 22.8 % (42.0-52.0); HEMOGLOBIN 7.2 g/dl (14.0-18.0)
[2019-03-23] MEDS: QUETIAPINE 25 MG TAB NGT (20:28)
[2019-03-24] MEDS: LACTULOSE 30ML CUP NGT ×2 (00:09→05:15)
[2019-03-24] MEDS: DEXTROSE 5% 1,000 ML IV ×2 (01:00→20:27)
[2019-03-24 05:14] LABS: ADD MAN DIFF? NO
[2019-03-24 05:15] LABS: ABNORMAL IP MESSAGE 1; BASOPHILS % 0.8 % (0.0-2.0); EOSINOPHILS # 0.2 10^3/ul (0.0-0.5); EOSINOPHILS % 4.2 % (0.0-7.0); HEMATOCRIT 21.9 % (42.0-52.0); LYMPHOCYTES # 1.1 10^3/ul (0.8-2.9); LYMPHOCYTES % 31.8 % (15.0-51.0); MEAN CORPUSCULAR HEMOGLOBIN 30.7 pg (29.0-33.0); MEAN CORPUSCULAR HGB CONC 30.6 g/dl (32.0-37.0); MEAN CORPUSCULAR VOLUME 100.5 fl (82.0-101.0); MEAN PLATELET VOLUME 11.9 fl (7.4-10.4); MONOCYTE # 0.3 10^3/ul (0.3-0.9); MONOCYTES % 8.9 % (0.0-11.0); NEUTROPHIL # 1.9 10^3/ul (1.6-7.5); PLATELET COUNT 89 10^3/UL (140-415); POSITIVE DIFF @See below; RED BLOOD COUNT 2.18 10^6/ul (4.70-6.10); RED CELL DISTRIBUTION WIDTH 16.9 % (11.5-14.5)
[2019-03-24 05:15] LABS: WHITE BLOOD COUNT 3.6 10^3/ul (4.8-10.8)
[2019-03-24] MEDS: PANTOPRAZOLE 40 MG INJ IV ×2 (05:16→18:00)
[2019-03-24 05:38] LABS: HEMOGLOBIN 6.7 g/dl (14.0-18.0)
[2019-03-24 05:41] LABS: ANION GAP 5 (5-13); BLOOD UREA NITROGEN 13 mg/dl (7-20); CALCIUM 7.9 mg/dl (8.4-10.2); CARBON DIOXIDE 21 mmol/L (21-31); CHLORIDE 114 mmol/L (97-110); CREATININE 0.98 mg/dl (0.61-1.24); Estimated GFR > 60 mL/min (>60); GLUCOSE 93 mg/dl (70-220); MAGNESIUM 1.9 mg/dl (1.7-2.5); PHOSPHORUS 3.5 mg/dl (2.5-4.9); POTASSIUM 3.6 mmol/L (3.5-5.1); SODIUM 140 mmol/L (135-144)
[2019-03-24] MEDS: PROPRANOLOL 10 MG TAB PO ×2 (08:12→22:16)
[2019-03-24] MEDS: THIAMINE 100 MG TAB PO (08:12)
[2019-03-24] MEDS: RIFAXIMIN 550 MG TAB NGT ×2 (08:12→22:16)
[2019-03-24] MEDS: FOLIC ACID 1 MG TAB PO (08:13)
[2019-03-24] MEDS ORDERED: LACTULOSE 30ML CUP PO (12:00)
[2019-03-24] MEDS: LACTULOSE 30ML CUP PO ×3 (12:08→21:00)
[2019-03-24 12:41] LABS: MYELOPEROXIDASE ANTIBODY <1.0 AI; PROTEINASE-3 ANTIBODY <1.0 AI
[2019-03-24 13:27] LABS: IMMEDIATE SPIN CROSSMATCH 1 1
[2019-03-24 14:17] LABS: ANCA SCREEN NEGATIVE (NEGATIVE)
[2019-03-24] MEDS ORDERED: PENDING SANTYL ORDER FOR WOUND CARE XX (20:30)
[2019-03-24] MEDS: QUETIAPINE 25 MG TAB PO (22:16)
[2019-03-25 05:23] LABS: ADD MAN DIFF? NO
[2019-03-25 05:31] LABS: WHITE BLOOD COUNT 4.4 10^3/ul (4.8-10.8)
[2019-03-25 05:31] LABS: ABNORMAL IP MESSAGE 1; BASOPHILS % 0.9 % (0.0-2.0); EOSINOPHILS # 0.1 10^3/ul (0.0-0.5); EOSINOPHILS % 2.5 % (0.0-7.0); HEMOGLOBIN 8.1 g/dl (14.0-18.0); LYMPHOCYTES # 0.9 10^3/ul (0.8-2.9); LYMPHOCYTES % 20.6 % (15.0-51.0); MEAN CORPUSCULAR HEMOGLOBIN 31.5 pg (29.0-33.0); MEAN CORPUSCULAR HGB CONC 32.4 g/dl (32.0-37.0); MEAN CORPUSCULAR VOLUME 97.3 fl (82.0-101.0); MONOCYTE # 0.4 10^3/ul (0.3-0.9); MONOCYTES % 8.4 % (0.0-11.0); NEUTROPHILS % 67.4 % (39.0-77.0); PLATELET COUNT 93 10^3/UL (140-415); POSITIVE DIFF @See below; RED BLOOD COUNT 2.57 10^6/ul (4.70-6.10); RED CELL DISTRIBUTION WIDTH 15.9 % (11.5-14.5)
[2019-03-25] MEDS: PANTOPRAZOLE 40 MG INJ IV ×2 (05:34→18:17)
[2019-03-25] MEDS: FOLIC ACID 1 MG TAB PO (08:31)
[2019-03-25] MEDS: THIAMINE 100 MG TAB PO (08:31)
[2019-03-25] MEDS: LACTULOSE 30ML CUP PO ×2 (08:31→20:28)
[2019-03-25] MEDS: RIFAXIMIN 550 MG TAB PO ×2 (12:26→20:28)
[2019-03-25] MEDS: PROPRANOLOL 10 MG TAB PO ×2 (12:32→20:29)
[2019-03-25] MEDS: QUETIAPINE 25 MG TAB PO (21:10)
[2019-03-26] MEDS: PANTOPRAZOLE 40 MG INJ IV (05:35)
[2019-03-26] MEDS: DEXTROSE 5% 1,000 ML IV (05:35)
[2019-03-26 05:44] LABS: HEMATOCRIT 25.6 % (42.0-52.0); HEMOGLOBIN 8.4 g/dl (14.0-18.0); MEAN CORPUSCULAR HEMOGLOBIN 31.7 pg (29.0-33.0); MEAN CORPUSCULAR HGB CONC 32.8 g/dl (32.0-37.0); MEAN CORPUSCULAR VOLUME 96.6 fl (82.0-101.0); MEAN PLATELET VOLUME 11.3 fl (7.4-10.4); PLATELET COUNT 128 10^3/UL (140-415); RED BLOOD COUNT 2.65 10^6/ul (4.70-6.10); RED CELL DISTRIBUTION WIDTH 16.8 % (11.5-14.5)
[2019-03-26 05:44] LABS: WHITE BLOOD COUNT 5.1 10^3/ul (4.8-10.8)
[2019-03-26 05:45] LABS: ADD MAN DIFF? YES
[2019-03-26 06:02] LABS: INR 1.19; PROTIME 15.2 Sec (11.9-14.9); PT RATIO 1.2
[2019-03-26 06:25] LABS: ANION GAP 5 (5-13); BLOOD UREA NITROGEN 14 mg/dl (7-20); CALCIUM 8.3 mg/dl (8.4-10.2); CARBON DIOXIDE 21 mmol/L (21-31); CHLORIDE 114 mmol/L (97-110); CREATININE 1.02 mg/dl (0.61-1.24); Estimated GFR > 60 mL/min (>60); GLUCOSE 89 mg/dl (70-220); MAGNESIUM 1.9 mg/dl (1.7-2.5); PHOSPHORUS 3.6 mg/dl (2.5-4.9); POTASSIUM 3.3 mmol/L (3.5-5.1); SODIUM 140 mmol/L (135-144)
[2019-03-26 06:46] LABS: ALANINE AMINOTRANSFERASE 24 IU/L (13-69); ALBUMIN 2.3 g/dl (3.3-4.9); ALKALINE PHOSPHATASE 147 IU/L (42-121); ASPARTATE AMINO TRANSFERASE 54 IU/L (15-46); BILIRUBIN,INDIRECT 0.8 mg/dl (0-1.1); BILIRUBIN,TOTAL 0.8 mg/dl (0.2-1.3); TOTAL PROTEIN 6.1 g/dl (6.1-8.1)
[2019-03-26 07:04] LABS: ANISOCYTOSIS 1+ (0-0); BASOPHIL #M 0.1 10^3/ul (0.0-0.0); BASOPHILS % (M) 2 % (0-2); BURR CELLS 1+ (0-0); EOSINOPHILS % (M) 7 % (0-7); LYMPHOCYTES #M 1.4 10^3/ul (0.8-2.9); LYMPHOCYTES % (M) 29 % (15-51); MONOCYTE #M 0.1 10^3/ul (0.3-0.9); MONOCYTES % (M) 3 % (0-11); PLATELET ESTIMATE DECREASED; POLYCHROMASIA 1+ (0-0); SEGMENTED NEUTROPHILS (M) % 59 % (39-77); SMUDGE%M 8 % (0-0); SPHEROCYTES 1+ (0-0)
[2019-03-26] MEDS: RIFAXIMIN 550 MG TAB PO (08:12)
[2019-03-26] MEDS: FOLIC ACID 1 MG TAB PO (08:12)
[2019-03-26] MEDS: THIAMINE 100 MG TAB PO (08:12)
[2019-03-26] MEDS: PROPRANOLOL 10 MG TAB PO (08:12)
[2019-03-26] MEDS: POTASSIUM CHLORIDE (SR) 20 MEQ TAB PO (08:13)
[2019-03-26] MEDS: LACTULOSE 30ML CUP PO (08:13)
== END 2019-03-26 18:45 | disposition home or self-care (01) | DRG 441 ==
LOC: ICU 03-19 11:18 → 2NE 03-25 06:39 → E/R 12:14 → 6WM 17:20
PROC: 0DB68ZX Excision of Stomach, Via Natural or Artificial Opening Endoscopic, Diagnostic (ICD-10-PCS; principal; 2019-03-17 15:40)
PROC: 0BH17EZ Insertion of Endotracheal Airway into Trachea, Via Natural or Artificial Opening (ICD-10-PCS; 2019-03-17 15:40)
PROC: 5A1945Z Respiratory Ventilation, 24-96 Consecutive Hours (ICD-10-PCS; 2019-03-17 15:40)
PROC: 30233N1 Transfusion of Nonautologous Red Blood Cells into Peripheral Vein, Percutaneous Approach (ICD-10-PCS; 2019-03-17 15:40)
DX: K72.00 Acute and subacute hepatic failure without coma (principal); K26.4 Chronic or unspecified duodenal ulcer with hemorrhage; J96.01 Acute respiratory failure with hypoxia; N17.9 Acute kidney failure, unspecified; D62 Acute posthemorrhagic anemia; E87.0 Hyperosmolality and hypernatremia; K76.6 Portal hypertension; D68.9 Coagulation defect, unspecified; I47.1 Supraventricular tachycardia; I85.10 Secondary esophageal varices without bleeding; K74.69 Other cirrhosis of liver; K75.4 Autoimmune hepatitis; K29.70 Gastritis, unspecified, without bleeding; K31.89 Other diseases of stomach and duodenum; R23.3 Spontaneous ecchymoses; E87.6 Hypokalemia; Z79.1 Long term (current) use of non-steroidal anti-inflammatories (NSAID)
CPT/HCPCS: 31500; 36415; 36430; 36600; 70450; 70551; 71045; 74176; 76705; 76775; 80048; 80053; 80076; 80202; 80307; 81001; 81003; 82043; 82140; 82270; 82550; 82553; 82607; 82787; 82803; 82945; 83036; 83540; 83605; 83690; 83735; 83935; 84100; 84155; 84157; 84295; 84300; 84436; 84439; 84443; 84479; 84481; 84484; 85014; 85018; 85025; 85610; 85651; 85730; 86021; 86038; 86140; 86255; 86376; 86592; 86704; 86706; 86788; 86789; 86803; 86850; 86900; 86901; 86920; 87040-91; 87075; 87081; 87086; 87340; 88305; 89051; 92526; 92610; 93005; 93306; 93970; 94002; 94003; 94770; 95819; 96374; 96375; 97110; 97116; 97163; 97167; 97530; 97535; 99285-25